=== PATIENT | male | born 1995 | race Caucasian/White ===

== ENCOUNTER → 2018-01-18 | Outpatient (CLI) | payer BC, OTHER | LOC: COL.RAD 10:35 | DX: S53.441A Ulnar collateral ligament sprain of right elbow, initial encounter (principal); M77.8 Other enthesopathies, not elsewhere classified; S56.211A Strain of other flexor muscle, fascia and tendon at forearm level, right arm, initial encounter | CPT/HCPCS: J3301; Q9967 ==